=== PATIENT | female | born 1975 | race Caucasian/White ===

== ENCOUNTER 2025-03-26 08:32 | Emergency (ER) | payer SELFPAY ==
--- OUTSIDE RECORDS SUMMARY | 2025-03-26 08:41 | XMS_ITS | Encounter Summary ---
Author Organization [facility] Address [address] [place] [address] Care Team Providers Care Sports Equipment Repairer Name Role Phone Non-Staff, Physician Primary Care Provider Unava ilable Encounter Details Date Type Department Care Team (Late st Contact Info) Description 07/21/2005 Outpatient Historical [facility] [address] [facility] [address] [place] [address] Aby Bar MD [facility] [address] [place] [address] SUPERVIS NORMAL 1ST PREG (Primary Dx) Social History Tobacco Use Types Packs/Day Years Used Date Smoking Tobacco: Never Assessed Comments Unknown Sex and Gender Information Value Date Recorded Sex Assigned at Not on file Legal Sex Female 6:38 AM DEAN OF EDUCATION Gender Identity Not on file Sexual Orientation Not on file documented as of this encounter Plan of Treatment Not on file documented as of this encounter Visit Diagnoses Diagnosis Supervision of normal first - Primary documented in this encounter Care Teams Sports Equipment Repairer Relationship Specialty Start Date End Date Non-Staff, Physician NO ADDRESS ON FILE PCP - General 12/30/14 documented as of this encounter
--- OUTSIDE RECORDS SUMMARY | 2025-03-26 08:41 | XMS_ITS | Encounter Summary ---
Author Organization [facility] Address [address] [place] [address] Care Team Providers Care Accounts Payable Payroll Coordinator Name Role Phone Non-Staff, Physician Primary Care Provider Unava ilable Encounter Details Date Type Department Care Team (Late st Contact Info) Description 09/07/2007 Outpatient Historical [facility] OBGYN-[address] [place] [address] Aby Bar MD [address] [place] [address] [address] [place] [address] Social History Tobacco Use Types Packs/Day Years Used Date Smoking Tobacco: Never Assessed Comments Unknown Sex and Gender Information Value Date Recorded Sex Assigned at Not on file Legal Sex Female 6:38 AM 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
--- OUTSIDE RECORDS SUMMARY | 2025-03-26 08:41 | XMS_ITS | Encounter Summary ---
Author Organization [facility] Address [address] [place] [address] Care Team Providers Care Paint Roller Cover Machine Setter Name Role Phone Non-Staff, Physician Primary Care Provider Unava ilable Encounter Details Date Type Department Care Team (Late st Contact Info) Description 08/18/2005 Outpatient Historical [facility] [address] [facility] [address] [place] [address] Aby Bar MD 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
--- OUTSIDE RECORDS SUMMARY | 2025-03-26 08:41 | XMS_ITS | Encounter Summary ---
Author Organization [facility] Address [address] [place] [address] Care Team Providers Care Lab Technician Name Role Phone Non-Staff, Physician Primary Care Provider Unava ilable Encounter Details Date Type Department Care Team (Late st Contact Info) Description 07/05/2007 Outpatient Historical [facility] Endocrinology-[facility] [place] [address] [place] [address] Gonzales Ocampo MD NO ADDRESS ON FILE Social History Tobacco Use Types Packs/Day Years Used Date Smoking Tobacco: Never Assessed Comments Unknown Sex and Gender Information Value Date Recorded Sex Assigned at Not on file Legal Sex Female 6:38 AM HVAC/R INSTRUCTOR Gender Identity Not on file Sexual Orientation Not on file documented as of this encounter Plan of Treatment Not on file documented as of this encounter Visit Diagnoses Not on filedocumented in this encounter Care Teams Lab Technician Relationship Specialty Start Date End Date Non-Staff, Physician NO ADDRESS ON FILE PCP - General 12/30/14 documented as of this encounter
--- OUTSIDE RECORDS SUMMARY | 2025-03-26 08:41 | XMS_ITS | Encounter Summary ---
Author Organization [facility] Address [address] [place] [address] Care Team Providers Care Concert Or Lecture Hall Manager Name Role Phone Non-Staff, Physician Primary Care Provider Unava ilable Encounter Details Date Type Department Care Team (Latest Contact Info) Description 09/15/2005 Outpatient Historical [facility] Maternal and Medicine-[facility] rosette [address] [place] [address] Mookie Watters II, MD [address] [place] [address] SCREEN- MALFORM (Primary Dx) Social History Tobacco Use Types Packs/Day Years Used Date Smoking Tobacco: Never Assessed Comments Unknown Sex and Gender Information Value Date Recorded Sex Assigned at Not on file Legal Sex Female 6:38 AM RN LICENSED PRACTICAL Gender Identity Not on file Sexual Orientation Not on file documented as of this encounter Plan of Treatment Not on file documented as of this encounter Visit Diagnoses Diagnosis Encounter for routine screening for malformation using ultrasonics- Primary documented in this encounter Care Teams Concert Or Lecture Hall Manager Relationship Specialty Start Date End Date Non-Staff, Physician NO ADDRESS ON FILE PCP - General 12/30/14 documented as of this encounter
--- OUTSIDE RECORDS SUMMARY | 2025-03-26 08:41 | XMS_ITS | Encounter Summary ---
Author Organization [facility] Address [address] [place] [address] Care Team Providers Care Photogrammetrist Name Role Phone Non-Staff, Physician Primary Care Provider Unava ilable Encounter Details Date Type Department Care Team (Late st Contact Info) Description 01/09/2006 Outpatient Historical [facility] [address] [facility] [address] [place] [address] Aby Bar MD [address] [place] [address] [address] [place] [address] Supervision of Other Normal (Primary Dx) Social History Tobacco Use Types Packs/Day Years Used Date Smoking Tobacco: Never Assessed Comments Unknown Sex and Gender Information Value Date Recorded Sex Assigned at Not on file Legal Sex Female 6:38 AM MANAGER FOREIGN Gender Identity Not on file Sexual Orientation Not on file documented as of this encounter Plan of Treatment Not on file documented as of this encounter Visit Diagnoses Diagnosis Supervision of other normal - Primary documented in this encounter Care Teams Photogrammetrist Relationship Specialty Start Date End Date Non-Staff, Physician NO ADDRESS ON FILE PCP - General 12/30/14 documented as of this encounter
--- OUTSIDE RECORDS SUMMARY | 2025-03-26 08:41 | XMS_ITS | Encounter Summary ---
Author Organization [facility] Address [address] [place] [address] Care Team Providers Care Filing Clerk Name Role Phone Non-Staff, Physician Primary Care Provider Unava ilable Encounter Details Date Type Department Care Team (Late st Contact Info) Description 07/21/2005 Outpatient Historical [facility] FY06 Aby Bar MD [address] [address] Social History Tobacco Use Types Packs/Day Years Used Date Smoking Tobacco: Never Assessed Comments Unknown Sex and Gender Information Value Date Recorded Sex Assigned at Not on file Legal Sex Female 6:38 AM SIMULATION EDUCATOR Gender Identity Not on file Sexual Orientation Not on file documented as of this encounter Plan of Treatment Not on file documented as of this encounter Visit Diagnoses Not on filedocumented in this encounter Care Teams Filing Clerk Relationship Specialty Start Date End Date Non-Staff, Physician NO ADDRESS ON FILE PCP - General 12/30/14 documented as of this encounter
--- OUTSIDE RECORDS SUMMARY | 2025-03-26 08:41 | XMS_ITS | Encounter Summary ---
Author Organization [facility] Address [address] [place] [address] Care Team Providers Care Vocational Director Name Role Phone Non-Staff, Physician Primary Care Provider Unava ilable Encounter Details Date Type Department Care Team (Latest Contact Info) Description 09/15/2005 Outpatient Historical [facility] [address] [place] [phone] Christy Hathaway, INFORMATION MANAGER NO ADDRESS ON FILE SUPERVIS NORMAL 1ST PREG (Primary Dx) Social History Tobacco Use Types Packs/Day Years Used Date Smoking Tobacco: Never Assessed Comments Unknown Sex and Gender Information Value Date Recorded Sex Assigned at Not on file Legal Sex Female 6: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
--- OUTSIDE RECORDS SUMMARY | 2025-03-26 08:41 | XMS_ITS | Encounter Summary ---
Author Organization [facility] Address [address] [place] [address] Care Team Providers Care Customs And Immigration Officer Name Role Phone Non-Staff, Physician Primary Care Provider Unava ilable Encounter Details Date Type Department Care Team (Late st Contact Info) Description 08/09/2007 Outpatient Historical [facility] Maternal and Medicine-[address] [place] [address] Social History Tobacco Use Types Packs/Day Years Used Date Smoking Tobacco: Never Assessed Comments Unknown Sex and Gender Information Value Date Recorded Sex Assigned at Not on file Legal Sex Female 6:38 AM NURSE MONITORING Gender Identity Not on file Sexual Orientation Not on file documented as of this encounter Plan of Treatment Not on file documented as of this encounter Visit Diagnoses Not on filedocumented in this encounter Care Teams Customs And Immigration Officer Relationship Specialty Start Date End Date Non-Staff, Physician NO ADDRESS ON FILE PCP - General 12/30/14 documented as of this encounter
--- OUTSIDE RECORDS SUMMARY | 2025-03-26 08:41 | XMS_ITS | Encounter Summary ---
Author Organization [facility] Address [address] [place] [address] Care Team Providers Care Product Support Representative Name Role Phone Non-Staff, Physician Primary Care Provider Unava ilable Encounter Details Date Type Department Care Team (Late st Contact Info) Description 12/21/2005 Outpatient Historical [facility]YN[facility] [address] [facility] [address] [place] [address] Aby Bar MD [address] [place] [address] [address] [place] [address] Supervision of Normal First (Primary Dx) Social History Tobacco Use Types Packs/Day Years Used Date Smoking Tobacco: Never Assessed Comments Unknown Sex and Gender Information Value Date Recorded Sex Assigned at Not on file Legal Sex Female 6:38 AM TEACHING FELLOW Gender Identity Not on file Sexual Orientation Not on file documented as of this encounter Plan of Treatment Not on file documented as of this encounter Visit Diagnoses Diagnosis Supervision of normal first - Primary documented in this encounter Care Teams Product Support Representative Relationship Specialty Start Date End Date Non-Staff, Physician NO ADDRESS ON FILE PCP - General 12/30/14 documented as of this encounter
--- OUTSIDE RECORDS SUMMARY | 2025-03-26 08:41 | XMS_ITS | Encounter Summary ---
Author Organization [facility] Address [address] [place] [address] Care Team Providers Care Truck Cleaner Name Role Phone Non-Staff, Physician Primary Care Provider Unava ilable Encounter Details Date Type Department Care Team (Latest Contact Info) Description 01/01/2008 Abstract [id number] Aby Bar MD [address] [address] Social History Tobacco Use Types Packs/Day Years Used Date Smoking Tobacco: Every Day Cigarettes 1.5 5 Alcohol Use Standard Drinks/Week Comments Yes 2.5 (1 standard drink = 0.6 oz p ure alcohol) Comments Unknown Sex and Gender Information Value Date Recorded Sex Assigned at Not on file Legal Sex Female 6:38 AM CONCESSION STAND ATTENDANT Gender Identity Not on file Sexual Orientation Not on file documented as of this encounter Plan of Treatment Not on file documented as of this encounter Visit Diagnoses Not on filedocumented in this encounter Care Teams Truck Cleaner Relationship Specialty Start Date End Date Non-Staff, Physician NO ADDRESS ON FILE PCP - General 12/30/14 documented as of this encounter
--- OUTSIDE RECORDS SUMMARY | 2025-03-26 08:41 | XMS_ITS | Encounter Summary ---
Author Organization [facility] Address [address] [place] [address] Care Team Providers Care Named Account Executive Name Role Phone Non-Staff, Physician Primary Care Provider Unava ilable Encounter Details Date Type Department Care Team (Late st Contact Info) Description 06/28/2007 Outpatient Historical [facility] OBGYN-[address] [place] [address] Aby Bar MD [address] [place] [address] [address] [place] [address] Social History Tobacco Use Types Packs/Day Years Used Date Smoking Tobacco: Never Assessed Comments Unknown Sex and Gender Information Value Date Recorded Sex Assigned at Not on file Legal Sex Female 6:38 AM MANAGER PRIVACY Gender Identity Not on file Sexual Orientation Not on file documented as of this encounter Plan of Treatment Not on file documented as of this encounter Visit Diagnoses Not on filedocumented in this encounter Care Teams Named Account Executive Relationship Specialty Start Date End Date Non-Staff, Physician NO ADDRESS ON FILE PCP - General 12/30/14 documented as of this encounter
--- OUTSIDE RECORDS SUMMARY | 2025-03-26 08:41 | XMS_ITS | Encounter Summary ---
Author Organization [facility] Address [address] [place] [address] Care Team Providers Care Dehydrogenation Operator Name Role Phone Non-Staff, Physician Primary Care Provider Unava ilable Encounter Details Date Type Department Care Team (Late st Contact Info) Description 11/09/2005 Outpatient Historical [facility] [address] [facility] [address] [place] [address] Aby Bar MD [facility] [address] [place] [address] Supervision of Normal First (Primary Dx) Social History Tobacco Use Types Packs/Day Years Used Date Smoking Tobacco: Never Assessed Comments Unknown Sex and Gender Information Value Date Recorded Sex Assigned at Not on file Legal Sex Female 6:38 AM RESEARCH 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
--- OUTSIDE RECORDS SUMMARY | 2025-03-26 08:41 | XMS_ITS | Encounter Summary ---
Author Organization [facility] Address [address] [place] [address] Care Team Providers Care Promotion Manager Name Role Phone Non-Staff, Physician Primary Care Provider Unava ilable Encounter Details Date Type Department Care Team (Late st Contact Info) Description 11/23/2005 Outpatient Historical [facility] [address] [facility] [address] [place] [address] Aby Bar MD [address] [place] [address] [address] [place] [address] Supervision of Normal First (Primary Dx) Social History Tobacco Use Types Packs/Day Years Used Date Smoking Tobacco: Never Assessed Comments Unknown Sex and Gender Information Value Date Recorded Sex Assigned at Not on file Legal Sex Female 6:38 AM TAKE AWAY MAN Gender Identity Not on file Sexual Orientation Not on file documented as of this encounter Plan of Treatment Not on file documented as of this encounter Visit Diagnoses Diagnosis Supervision of normal first - Primary documented in this encounter Care Teams Promotion Manager Relationship Specialty Start Date End Date Non-Staff, Physician NO ADDRESS ON FILE PCP - General 12/30/14 documented as of this encounter
--- OUTSIDE RECORDS SUMMARY | 2025-03-26 08:41 | XMS_ITS | Encounter Summary ---
Author Organization [facility] Address [address] [place] [address] Care Team Providers Care Sweat Band Sewer Name Role Phone Non-Staff, Physician Primary Care Provider Unava ilable Encounter Details Date Type Department Care Team (Late st Contact Info) Description 10/20/2005 Outpatient Historical [facility] [address] [facility] [address] [place] [address] Aby Bar MD [address] [place] [address] [address] [place] [address] Supervision of Normal First (Primary Dx) Social History Tobacco Use Types Packs/Day Years Used Date Smoking Tobacco: Never Assessed Comments Unknown Sex and Gender Information Value Date Recorded Sex Assigned at Not on file Legal Sex Female 6:38 AM MANAGER OFFICE Gender Identity Not on file Sexual Orientation Not on file documented as of this encounter Plan of Treatment Not on file documented as of this encounter Visit Diagnoses Diagnosis Supervision of normal first - Primary documented in this encounter Care Teams Sweat Band Sewer Relationship Specialty Start Date End Date Non-Staff, Physician NO ADDRESS ON FILE PCP - General 12/30/14 documented as of this encounter
--- OUTSIDE RECORDS SUMMARY | 2025-03-26 08:41 | XMS_ITS | Encounter Summary ---
Author Organization [facility] Address [address] [place] [address] Care Team Providers Care Seater Grinder Name Role Phone Non-Staff, Physician Primary Care Provider Unava ilable Encounter Details Date Type Department Care Team (Late st Contact Info) Description 12/07/2005 Outpatient Historical [facility] [address] [facility] [address] [place] [address] Aby Bar MD [address] [place] [address] [address] [place] [address] Supervision of Normal First (Primary Dx) Social History Tobacco Use Types Packs/Day Years Used Date Smoking Tobacco: Never Assessed Comments Unknown Sex and Gender Information Value Date Recorded Sex Assigned at Not on file Legal Sex Female 6:38 AM DIPLOMATIC INTERPRETER/TRANSLATOR Gender Identity Not on file Sexual Orientation Not on file documented as of this encounter Plan of Treatment Not on file documented as of this encounter Visit Diagnoses Diagnosis Supervision of normal first - Primary documented in this encounter Care Teams Seater Grinder Relationship Specialty Start Date End Date Non-Staff, Physician NO ADDRESS ON FILE PCP - General 12/30/14 documented as of this encounter
--- OUTSIDE RECORDS SUMMARY | 2025-03-26 08:41 | XMS_ITS | Encounter Summary ---
Author Organization [facility] Address [address] [facility] Attn: [place] [address] Care Team Providers Care Grain Sacker Name Role Phone Non-Staff, Physician Primary Care Provider Unava ilable Encounter Details Date Type Department Care Team (Late st Contact Info) Description 07/21/2005 Outpatient Historical Aby Bar MD [address] [place] [phone] Social History Tobacco Use Types Packs/Day Years Used Date Smoking Tobacco: Never Assessed Comments Unknown Sex and Gender Information Value Date Recorded Sex Assigned at Not on file Legal Sex Female 6:38 AM HAND COUNTER Gender Identity Not on file Sexual Orientation Not on file documented as of this encounter Plan of Treatment Not on file documented as of this encounter Visit Diagnoses Not on filedocumented in this encounter Care Teams Grain Sacker Relationship Specialty Start Date End Date Non-Staff, Physician NO ADDRESS ON FILE PCP - General 12/30/14 documented as of this encounter
--- OUTSIDE RECORDS SUMMARY | 2025-03-26 08:42 | XMS_ITS | Encounter Summary ---
Author Organization [facility] Address [address] [facility] Attn: [place] [address] Care Team Providers Care Vessel Captain Name Role Phone Non-Staff, Physician Primary Care Provider Unava ilable Encounter Details Date Type Department Care Team (Late st Contact Info) Description 04/25/2007 Outpatient Historical Aby Bar MD [address] [place] [phone] Social History Tobacco Use Types Packs/Day Years Used Date Smoking Tobacco: Never Assessed Comments Unknown Sex and Gender Information Value Date Recorded Sex Assigned at Not on file Legal Sex Female 6:38 AM ROLLER Gender Identity Not on file Sexual Orientation Not on file documented as of this encounter Plan of Treatment Not on file documented as of this encounter Visit Diagnoses Not on filedocumented in this encounter Care Teams Vessel Captain Relationship Specialty Start Date End Date Non-Staff, Physician NO ADDRESS ON FILE PCP - General 12/30/14 documented as of this encounter
--- OUTSIDE RECORDS SUMMARY | 2025-03-26 08:42 | XMS_ITS | Encounter Summary ---
Author Organization [facility] Address [address] [place] [address] Care Team Providers Care Ciaio Lumite Injector Name Role Phone Non-Staff, Physician Primary Care Provider Unava ilable Encounter Details Date Type Department Care Team (Late st Contact Info) Description 02/13/2006 Outpatient Historical [facility] Aby Bar MD [address] [address] Premature Rupture of Membranes in , Antepartum (Primary Dx) Social History Tobacco Use Types Packs/Day Years Used Date Smoking Tobacco: Never Assessed Comments Unknown Sex and Gender Information Value Date Recorded Sex Assigned at Not on file Legal Sex Female 6:38 AM EDITING CLERK Gender Identity Not on file Sexual Orientation Not on file documented as of this encounter Plan of Treatment Not on file documented as of this encounter Visit Diagnoses Diagnosis Premature rupture of membranes in , antepartum- Primary documented in this encounter Care Teams Ciaio Lumite Injector Relationship Specialty Start Date End Date Non-Staff, Physician NO ADDRESS ON FILE PCP - General 12/30/14 documented as of this encounter
--- OUTSIDE RECORDS SUMMARY | 2025-03-26 08:42 | XMS_ITS | Encounter Summary ---
Author Organization [facility] Address [address] [place] [address] Care Team Providers Care Breastfeeding Program Coordinator Name Role Phone Non-Staff, Physician Primary Care Provider Unava ilable Encounter Details Date Type Department Care Team (Late st Contact Info) Description 01/25/2006 Outpatient Historical [facility] [address] 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
--- OUTSIDE RECORDS SUMMARY | 2025-03-26 08:42 | XMS_ITS | Encounter Summary ---
Author Organization [facility] Address [address] [place] [address] Care Team Providers Care Web Merchant Name Role Phone Non-Staff, Physician Primary Care Provider Unava ilable Encounter Details Date Type Department Care Team (Latest Contact Info) Description 02/15/2006 Outpatient Historical [facility] [address] [place] [address] Christy Hathaway, CREATIVE LEAD NO ADDRESS ON FILE Supervision of Normal First (Primary Dx) Social History Tobacco Use Types Packs/Day Years Used Date Smoking Tobacco: Never Assessed Comments Unknown Sex and Gender Information Value Date Recorded Sex Assigned at Not on file Legal Sex Female 6:38 AM 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
--- OUTSIDE RECORDS SUMMARY | 2025-03-26 08:42 | XMS_ITS | Encounter Summary ---
Author Organization [facility] Address [address] [place] [address] Care Team Providers Care Airport Attendant Name Role Phone Non-Staff, Physician Primary Care Provider Unava ilable Encounter Details Date Type Department Care Team (Late st Contact Info) Description 08/23/2007 Outpatient Historical [facility] OBGYN-[place] [address] [place] [address] Aby Bar MD [facility] [address] [place] [address] Social History Tobacco Use Types Packs/Day Years Used Date Smoking Tobacco: Never Assessed Comments Unknown Sex and Gender Information Value Date Recorded Sex Assigned at Not on file Legal Sex Female 6:38 AM DEPUTY INSURANCE COMMISSIONER Gender Identity Not on file Sexual Orientation Not on file documented as of this encounter Plan of Treatment Not on file documented as of this encounter Procedures Procedure Name Priority Date/Time Associated Diagnosis Comments GLUCOSE TOLERANCE 1 HR GESTATIONAL Routine 09/07/2007 11:12 AM DEPUTY INSURANCE COMMISSIONER CBC WITH DIFFERENTIAL Routine 09/07/2007 11:12 AM DEPUTY INSURANCE COMMISSIONER T3 FREE Routine 09/07/2007 11:12 AM DEPUTY INSURANCE COMMISSIONER TSH Routine 09/07/2007 11:12 AM DEPUTY INSURANCE COMMISSIONER T4 FREE Routine 09/07/2007 11:12 AM DEPUTY INSURANCE COMMISSIONER documented in this encounter Results * (ABNORMAL) TSH (09/07/2007 11:12 AM DEPUTY INSURANCE COMMISSIONER) TSH 0.02(L) 0.27 - 4.20 uIU/ML [facility] 09/07/2007 11:1 2 AM DEPUTY INSURANCE COMMISSIONER 09/07/2007 11:17 AM DEPUTY INSURANCE COMMISSIONER Aby Bar MD CHEMISTRY ORDERABLES F inal Result [facility] CLIA# [id number] [address] [place] [address] * GLUCOSE TOLERANCE 1 HR GESTATIONAL (09/07/2007 11:12 AM DEPUTY INSURANCE COMMISSIONER) Pathologist [facility] GLUCOSE, 1HR 90 MG/DL [facility] 09/07/2007 11:1 2 AM DEPUTY INSURANCE COMMISSIONER 09/07/2007 11:17 AM DEPUTY INSURANCE COMMISSIONER Aby Bar MD CHEMISTRY ORDERABLES F inal Result Performing Organization Address City/[facility] Co de Phone Number [facility] CLIA# [id number] [address] [place] [address] * T4 FREE (09/07/2007 11:12 AM DEPUTY INSURANCE COMMISSIONER) Pathologist [facility] T4 FREE 1.17 0.81 - 1.70 NG/DL [facility] 09/07/2007 11:1 2 AM DEPUTY INSURANCE COMMISSIONER 09/07/2007 11:17 AM DEPUTY INSURANCE COMMISSIONER Aby Bar MD CHEMISTRY ORDERABLES F inal Result [facility] CLIA# [id number] [address] [place] [address] * T3 FREE (09/07/2007 11:12 AM DEPUTY INSURANCE COMMISSIONER) T3 FREE 3.67 2.57 - 4.43 PG/ML [facility] 09/07/2007 11:1 2 AM DEPUTY INSURANCE COMMISSIONER 09/07/2007 11:17 AM DEPUTY INSURANCE COMMISSIONER Aby Bar MD CHEMISTRY ORDERABLES F inal Result [facility] CLIA# [id number] [address] [place] [address] * (ABNORMAL) CBC WITH DIFFERENTIAL (09/07/2007 11:12 AM DEPUTY INSURANCE COMMISSIONER) WBC 9.2 4.5 - 11.0 K/UL [facility] [place] RBC 3.99(L) 4.2 - 5.4 M/UL [facility] [place] HEMOGLOBIN 11.9(L) 12.0 - 16.0 G/DL [facility] [place] HEMATOCRIT 35.1(L) 36 - 46 % [facility] - [place] MCV 88.0 82 - 100 FL [facility] [place] MCH 29.9 27 - 34 PG [facility] CLI [facility] SERVICES - [place] MCHC 34.0 31 - 37 G/DL [facility] [place] RDW 12.7 11 - 14.5 % [facility] [place] PLATELETS 324 140 - 440 K/UL [facility] [place] MPV 7.1(L) 7.4 - 10.4 FL [facility] [place] NEUTROPHILS 66.6 42.2 - 75.2 % [facility] [place] LYMPHOCYTES 24.4 24 - 44 % [facility] [place] MONOCYTES 6.7 2 - 10 % [facility] - [place] EOSINOPHILS 1.9 0 - 7 % [facility] [place] BASOPHILS 0.4 0 - 1 % [facility] SERVICES - [place] NEUTROPHIL ABSOLUTE 6.2 1.4 - 6.5 K/uL [facility] [place] LYMPHOCYTE ABSOLUTE 2.2 1.2 - 4.0 K/UL [facility] [place] MONOCYTE ABSOLUTE 0.6 0.1 - 0.6 K/UL [facility] [place] EOSINOPHIL ABSOLUTE 0.2 0 - 0.7 K/UL [facility] [place] BASOPHILS ABSOLUTE 0.0 0 - 0.2 K/UL [facility] [place] 09/07/2007 11:1 2 AM DEPUTY INSURANCE COMMISSIONER 09/07/2007 11:17 AM DEPUTY INSURANCE COMMISSIONER us Aby Bar MD HEMATOLOGY ORDERABLES Final Result [facility] [place] CLIA# [id number] [address] [place] [phone] documented in this encounter Visit Diagnoses Not on filedocumented in this encounter Care Teams Airport Attendant Relationship Specialty Start Date End Date Non-Staff, Physician NO ADDRESS ON FILE PCP - General 12/30/14 documented as of this encounter
--- OUTSIDE RECORDS SUMMARY | 2025-03-26 08:42 | XMS_ITS | Clinical Summary ---
Author Organization [facility] Address [address] [facility] [place] [address] Care Team Providers Care Equipment Scheduler Name Role Phone Non-Staff, Physician Primary Care Provider Unava ilable Allergies No known active allergies Medications cefUROXime axetil (CEFTIN) 250 mg Oral Tab Take 1 Tab by mouth every 12 hours. 28 Tab 0 08/08/2008 Active Immunizations Immunization Administration Dates Next Due Influenza Seasonal Unspecified Formulation IM Family History Medical History Relation Name Comments Cancer Father skin cancer Diabetes Maternal Grandfather Other Paternal Grandfather glaucom a Relation Name Status Comments Father Alive Maternal Grandfather Maternal Grandmother Mother Alive Paternal Grandfather Paternal Grandmother Social History Tobacco Use Types Packs/Day Years Used Date Smoking Tobacco: Former Cigarettes 0.3 3 Comments:social once a month Alcohol Use Standard Drinks/Week Comments Yes 2.5 (1 standard drink = 0.6 oz p ure alcohol) Comments No Sex and Gender Information Value Date Recorded Sex Assigned at Not on file Legal Sex Female 6:38 AM BUILDING SUPPLIES SALESPERSON RETAIL Gender Identity Not on file Sexual Orientation Not on file Last Filed Vital Signs Vital Sign Reading Time Taken Comments Blood Pressure 112/78 08/08/2008 1:09 PM BUILDING SUPPLIES SALESPERSON RETAIL Pulse 78 08/08/2008 1:09 PM BUILDING SUPPLIES SALESPERSON RETAIL Temperature - - Respiratory Rate 16 01/09/2008 11:24 AM CDT Oxygen Saturation - - Inhaled Oxygen Concentration - - Weight 78.5 kg (173 lb) 08/08/2008 1:09 PM BUILDING SUPPLIES SALESPERSON RETAIL Height 167.6 cm (5' 6 ) 01/09/2008 11:24 AM CDT Body Mass Index 27.92 01/09/2008 11:24 AM CDT Plan of Treatment Health Maintenance Due Date Last Done Comments DTAP/TDAP/TD VACCINES (1 - Tdap) 1993 HEPATITIS B VACCINES (1 of 3 - 19+ 3-dose series) 1993 HPV/Cotest (21-29) 1995 HPV/Cotest (30-65) 2004 CERVICAL CANCER SCREENING 04/25/2010 PAP SMEAR 04/25/2010 04/25/2007, 01/2006, 07/21/2005 BREAST CANCER SCREENING 2014 COLORECTAL SCREENING 2019 Colorectal Cancer Screening 2019 FIT-DNA Q 3 years 2019 FIT/FOBT Q 1 year 2019 Flex Sig/CT Colonography Q 5 years 2019 ZOSTER VACCINE (1 of 2) 2024 INFLUENZA VACCINE (#1) 2025 05/24/2007 Insurance PREFERRED HEALTH PROFESSIONAL Care Teams Equipment Scheduler Relationship Specialty Start Date End Date Non-Staff, Physician NO ADDRESS ON FILE PCP - General 12/30/14
--- OUTSIDE RECORDS SUMMARY | 2025-03-26 08:42 | XMS_ITS | Encounter Summary ---
Author Organization [facility] Address [address] [place] [address] Care Team Providers Care Authorization Representative Name Role Phone Non-Staff, Physician Primary Care Provider Unava ilable Encounter Details Date Type Department Care Team (Late st Contact Info) Description 02/01/2006 Outpatient Historical [facility] [address] [facility] [address] [place] [address] Aby Bar MD [address] [place] [address] [address] [place] [address] Supervision of Normal First (Primary Dx) Social History Tobacco Use Types Packs/Day Years Used Date Smoking Tobacco: Never Assessed Comments Unknown Sex and Gender Information Value Date Recorded Sex Assigned at Not on file Legal Sex Female 6:38 AM SUPERVISOR 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
--- OUTSIDE RECORDS SUMMARY | 2025-03-26 08:42 | XMS_ITS | Encounter Summary ---
Author Organization [facility] Address [address] [place] [address] Care Team Providers Care Business Continuity Analyst Name Role Phone Non-Staff, Physician Primary Care Provider Unava ilable Encounter Details Date Type Department Care Team (Latest Contact Info) Description 03/30/2006 Outpatient [facility] [address] [place] [address] Christy Hathaway, FORENSIC LOCKSMITH NO ADDRESS ON FILE Routine Follow-Up (Primary Dx) Social History Tobacco Use Types Packs/Day Years Used Date Smoking Tobacco: Never Assessed Comments Unknown Sex and Gender Information Value Date Recorded Sex Assigned at Not on file Legal Sex Female 6:38 AM IMAGE ARCHIVIST Gender Identity Not on file Sexual Orientation Not on file documented as of this encounter Plan of Treatment Not on file documented as of this encounter Visit Diagnoses Diagnosis Routine follow-up- Primary documented in this encounter Care Teams Business Continuity Analyst Relationship Specialty Start Date End Date Non-Staff, Physician NO ADDRESS ON FILE PCP - General 12/30/14 documented as of this encounter
--- OUTSIDE RECORDS SUMMARY | 2025-03-26 08:42 | XMS_ITS | Encounter Summary ---
Author Organization [facility] Address [address] [place] [address] Care Team Providers Care Concessionist Name Role Phone Non-Staff, Physician Primary Care Provider Unava ilable Encounter Details Date Type Department Care Team (Late st Contact Info) Description 07/26/2007 Outpatient Historical [facility] [address] [facility] [address] [place] [address] Aby Bar MD [address] [place] [address] [address] [place] [address] Social History Tobacco Use Types Packs/Day Years Used Date Smoking Tobacco: Never Assessed Comments Unknown Sex and Gender Information Value Date Recorded Sex Assigned at Not on file Legal Sex Female 6:38 AM SENIOR PARTNER Gender Identity Not on file Sexual Orientation Not on file documented as of this encounter Plan of Treatment Not on file documented as of this encounter Visit Diagnoses Not on filedocumented in this encounter Care Teams Concessionist Relationship Specialty Start Date End Date Non-Staff, Physician NO ADDRESS ON FILE PCP - General 12/30/14 documented as of this encounter
--- OUTSIDE RECORDS SUMMARY | 2025-03-26 08:42 | XMS_ITS | Encounter Summary ---
Author Organization [facility] Address [address] [facility] Attn: [place] [address] Care Team Providers Care Postage Machine Operator Name Role Phone Non-Staff, Physician Primary Care Provider Unava ilable Encounter Details Date Type Department Care Team (Late st Contact Info) Description 01/09/2008 Outpatient Historical Kimberley Ferrer, AMMUNITION COMPONENTS INSPECTOR [address] [place] [address] Routine Follow-Up Social History Tobacco Use Types Packs/Day Years Used Date Smoking Tobacco: Every Day Cigarettes 1.5 5 Alcohol Use Standard Drinks/Week Comments Yes 2.5 (1 standard drink = 0.6 oz p ure alcohol) Comments No Sex and Gender Information Value Date Recorded Sex Assigned at Not on file Legal Sex Female 6:38 AM GRANITE POLISHER Gender Identity Not on file Sexual Orientation Not on file documented as of this encounter Plan of Treatment Not on file documented as of this encounter Procedures Procedure Name Priority Date/Time Associated Diagnosis Comments PATHOLOGY Routine 01/09/2008 6:35 AM CDT documented in this encounter Results * PATHOLOGY (01/09/2008 6:35 AM CDT) PATHOLOGY/ANJELICA SINGLETARY REPORT [facility] Anatomic Pathology Dept [facility] [facility] [address] Patient: ARABELLA COUGHLIN Accn No: [id number] Collected: 01/09/2008 6:35:00 AM CYTOLOGY CUTTER V GROOVE FINAL REPORT - - MACHINE CLOTH MEASURER PAP History Specimen Source: None Provided LMP: None Provided Last Pap Date: None Provided Post- Specimen Adequacy Satisfactory for interpretation. The smear shows sufficient numbers of endocervical or metaplastic cells. Diagnosis NEGATIVE FOR INTRAEPITHELIAL LESION OR MALIGNANCY. (Previously noted as Within Normal Limits) Cartographic Drafter JEREL 01/10/08 Completed by: HONG CARVAJAL(ASCP) (Electronically signed by) 01/10/08 Comment Routine follow-up is suggested. Important Info About Pap Smears HPV Testing off the Thin Prep vial can be done as a means of further evaluating a Thin Prep Report. For information about ordering the HPV test, phone Cytology at . Treatment or follow-up recommendations (if any) that are considered within this report are based upon general recommendations as contained in 2001 Consensus Guidelines For Cervical Cytological Abnormalities GLORIA: November 14, 2001, and are provided as a general guideline rather than as a specific recommendation. Final decisions about the most appropriate treatment and follow-up should be made on an individualized basis by the treating physician in consultation with his/her patient. INTERFACE SYSTEM 01/09/2008 6:35 AM CDT us Kimberley Ferrer NP PATHOLOGY/CYTOLOGY ORDERABL ES Final Result INTERFACE SYSTEM Refer to clinic/hospital department documented in this encounter Visit Diagnoses Diagnosis Routine follow-up documented in this encounter Care Teams Postage Machine Operator Relationship Specialty Start Date End Date Non-Staff, Physician NO ADDRESS ON FILE PCP - General 12/30/14 documented as of this encounter
--- OUTSIDE RECORDS SUMMARY | 2025-03-26 08:42 | XMS_ITS | Encounter Summary ---
Author Organization [facility] Address [address] [place] [address] Care Team Providers Care Receiving Lead Name Role Phone Non-Staff, Physician Primary Care Provider Unava ilable Encounter Details Date Type Department Care Team (Late st Contact Info) Description 04/25/2007 Outpatient Historical [facility] FY06 Aby Bar MD [address] [address] Social History Tobacco Use Types Packs/Day Years Used Date Smoking Tobacco: Never Assessed Comments Unknown Sex and Gender Information Value Date Recorded Sex Assigned at Not on file Legal Sex Female 6:38 AM PHYSICAL THERAPIST ASSISTANT Gender Identity Not on file Sexual Orientation Not on file documented as of this encounter Plan of Treatment Not on file documented as of this encounter Visit Diagnoses Not on filedocumented in this encounter Care Teams Receiving Lead Relationship Specialty Start Date End Date Non-Staff, Physician NO ADDRESS ON FILE PCP - General 12/30/14 documented as of this encounter
--- OUTSIDE RECORDS SUMMARY | 2025-03-26 08:42 | XMS_ITS | Encounter Summary ---
Author Organization [facility] Address [address] [place] [address] Care Team Providers Care Orthopedic Assistant Name Role Phone Non-Staff, Physician Primary Care Provider Unava ilable Encounter Details Date Type Department Care Team (Late st Contact Info) Description 11/29/2007 Inpatient Historical HIS IN BED [facility], Aby Velez MD [address] [facility] [address] [place] [address] Social History Tobacco Use Types Packs/Day Years Used Date Smoking Tobacco: Never Assessed Comments Unknown Sex and Gender Information Value Date Recorded Sex Assigned at Not on file Legal Sex Female 6:38 AM MOTEL MAID Gender Identity Not on file Sexual Orientation Not on file documented as of this encounter Plan of Treatment Not on file documented as of this encounter Procedures Procedure Name Priority Date/Time Associated Diagnosis Comments CBC WITHOUT DIFFERENTIAL Routine 11/30/2007 7:49 AM CDT BLOOD GAS CORD ARTERIAL Stat 11/29/2007 1:22 PM CDT ABORH TYPING Stat 11/29/2007 6:02 AM CDT CBC WITHOUT DIFFERENTIAL Stat 11/29/2007 6:02 AM CDT BLOOD BANK ANTIBODY SCREEN Stat 11/29/2007 6:02 AM CDT documented in this encounter Results * (ABNORMAL) CBC WITHOUT DIFFERENTIAL (11/30/2007 7:49 AM CDT) LYMPHOCYTE ABSOLUTE 2.9 1.2 - 4.0 K/ul [facility] MCV 87.4 84.0 - 103.0 Fl [facility] MPV 10.1 8.9 - 12.8 Fl [facility] BASOPHILS ABSOLUTE 0.0 0.0 - 0.2 K/ul [facility] BASOPHILS 0.2 0.0 - 1.0 % [facility] HEMOGLOBIN 11.0(L) 12.0 - 16.0 g/dL [facility] RDW 13.2 11.0 - 14.5 % [facility] MONOCYTE ABSOLUTE 0.7(H) 0.1 - 0.6 K/ul [facility] MONOCYTES 6.4 2.0 - 10.0 % [facility] WBC 10.2 4.5 - 11.0 K/ul [facility] MCH 29.4 27.0 - 34.0 pg [facility] NEUTROPHIL ABSOLUTE 6.4 2.0 - 8.0 K/ul [facility] NEUTROPHILS 62.4 42.2 - 75.2 % [facility] HEMATOCRIT 32.7(L) 36.0 - 46.0 % [facility] EOSINOPHILS 3.0 0.0 - 7.0 % [facility] PLATELETS 189 140 - 440 K/ul [facility] EOSINOPHIL ABSOLUTE 0.3 0.0 - 0.7 K/ul [facility] RBC 3.74(L) 4.20 - 5.40 Mil/ul [facility] LYMPHOCYTES 28.0 24.0 - 44.0 % [facility] MCHC 33.6 30.0 - 35.0 g/dL [facility] Blood specimen (specimen) 11/30/2007 7:49 AM CDT 11/30/2007 7:55 AM CDT us Aby Bar MD HEMATOLOGY ORDERABLES Final Result [facility] CLIA# [id number] [address] [place] [address] * (ABNORMAL) BLOOD GAS CORD ARTERIAL (11/29/2007 1:22 PM CDT) O2 SAT EST CORD ARTERIAL 18 % [facility] HCO3 CORD ARTERIAL 26.2 17.0 - 27.0 mmol/l [facility] TCO2 CORD 28 mmol/l [facility] PCO2 CORD ARTERIAL 62(H) 32 - 36 mmHg [facility] BASE EXCESS CORD ARTERIAL -1 -2 - 3 mmol/l [facility] SPECIMEN DESCRIPTION Arterial [facility] Comment: Test Performed By [id number] Sample not collected by [facility] PO2 CORD ARTERIAL 17 mmHg [facility] PH CORD ARTERIAL 7.23 7.18 - 7.38 Unit [facility] Cord blood specimen (specimen) 11/29/2007 1:22 PM CDT 11/29/2007 1:22 PM CDT us Aby Bar MD ABG ORDERABLES Final Result [facility] [address] [place] [address] * (ABNORMAL) CBC WITHOUT DIFFERENTIAL (11/29/2007 6:02 AM CDT) HEMATOCRIT 34.8(L) 36.0 - 46.0 % [facility] PLATELETS 232 140 - 440 K/ul [facility] EOSINOPHIL ABSOLUTE 0.2 0.0 - 0.7 K/ul [facility] EOSINOPHILS 1.9 0.0 - 7.0 % [facility] RBC 4.00(L) 4.20 - 5.40 Mil/ul [facility] MCHC 33.6 30.0 - 35.0 g/dL [facility] LYMPHOCYTE ABSOLUTE 2.9 1.2 - 4.0 K/ul [facility] LYMPHOCYTES 26.0 24.0 - 44.0 % [facility] MCV 87.0 84.0 - 103.0 Fl [facility] BASOPHILS 0.2 0.0 - 1.0 % [facility] MPV 10.9 8.9 - 12.8 Fl [facility] BASOPHILS ABSOLUTE 0.0 0.0 - 0.2 K/ul [facility] HEMOGLOBIN 11.7(L) 12.0 - 16.0 g/dL [facility] MONOCYTES 6.8 2.0 - 10.0 % [facility] RDW 13.2 11.0 - 14.5 % [facility] MONOCYTE ABSOLUTE 0.8(H) 0.1 - 0.6 K/ul [facility] WBC 11.3(H) 4.5 - 11.0 K/ul [facility] NEUTROPHILS 65.1 42.2 - 75.2 % [facility] MCH 29.3 27.0 - 34.0 pg [facility] NEUTROPHIL ABSOLUTE 7.3 2.0 - 8.0 K/ul [facility] Blood specimen (specimen) 11/29/2007 6:02 AM CDT 11/29/2007 6:02 AM CDT Aby Bar MD HEMATOLOGY ORDERABLES Final Result [facility] [address] [place] [address] * ANTIBODY SCREEN (11/29/2007 6:02 AM CDT) ANTIBODY SCREEN Negative [facility] Blood specimen (specimen) 11/29/2007 6:02 AM CDT 11/29/2007 6:02 AM CDT us Aby Bar MD BLOOD BANK ORDERABLES Final Result [facility] [address] [place] [address] * ABORH TYPING (11/29/2007 6:02 AM CDT) ABO/RH TYPE O Positive [facility] Blood specimen (specimen) 11/29/2007 6:02 AM CDT 11/29/2007 6:02 AM CDT us Aby Bar MD BLOOD BANK ORDERABLES Final Result Performing Organization Address City/State/RUST Co de Phone Number [facility] [address] [place] [address] documented in this encounter Visit Diagnoses Not on filedocumented in this encounter Care Teams Orthopedic Assistant Relationship Specialty Start Date End Date Non-Staff, Physician NO ADDRESS ON FILE PCP - General 12/30/14 documented as of this encounter
--- OUTSIDE RECORDS SUMMARY | 2025-03-26 08:42 | XMS_ITS | Encounter Summary ---
Author Organization [facility] Address [address] [place] [address] Care Team Providers Care Ug Designer Name Role Phone Non-Staff, Physician Primary Care Provider Unava ilable Encounter Details Date Type Department Care Team (Late st Contact Info) Description 01/18/2006 Outpatient Historical [facility] [address] [facility] [address] [place] [address] Aby Bar MD [facility] [address] [place] [address] Supervision of Normal First (Primary Dx) Social History Tobacco Use Types Packs/Day Years Used Date Smoking Tobacco: Never Assessed Comments Unknown Sex and Gender Information Value Date Recorded Sex Assigned at Not on file Legal Sex Female 6:38 AM TRAVEL REGISTERED NURSE ONCOLOGY Gender Identity Not on file Sexual Orientation Not on file documented as of this encounter Plan of Treatment Not on file documented as of this encounter Visit Diagnoses Diagnosis Supervision of normal first - Primary documented in this encounter Care Teams Ug Designer Relationship Specialty Start Date End Date Non-Staff, Physician NO ADDRESS ON FILE PCP - General 12/30/14 documented as of this encounter
--- OUTSIDE RECORDS SUMMARY | 2025-03-26 08:42 | XMS_ITS | Encounter Summary ---
Author Organization [facility] Address [address] [place] [address] Care Team Providers Care Shore Man Name Role Phone Non-Staff, Physician Primary Care Provider Unava ilable Encounter Details Date Type Department Care Team (Latest Contact Info) Description 06/21/2005 Outpatient Historical [facility] [address] [place] [phone] Essence Lao MD [address] [place] [address] ACUTE URI NOS (Primary Dx) Social History Tobacco Use Types Packs/Day Years Used Date Smoking Tobacco: Never Assessed Comments Unknown Sex and Gender Information Value Date Recorded Sex Assigned at Not on file Legal Sex Female 6:38 AM FLOOR PLAN ADJUSTER Gender Identity Not on file Sexual Orientation Not on file documented as of this encounter Plan of Treatment Not on file documented as of this encounter Visit Diagnoses Diagnosis Acute upper respiratory infections of unspecified site- Primary documented in this encounter Care Teams Shore Man Relationship Specialty Start Date End Date Non-Staff, Physician NO ADDRESS ON FILE PCP - General 12/30/14 documented as of this encounter
--- OUTSIDE RECORDS SUMMARY | 2025-03-26 08:42 | XMS_ITS | Encounter Summary ---
Author Organization [facility] Address [address] [place] [address] Care Team Providers Care Biofuels Research Scientist Name Role Phone Non-Staff, Physician Primary Care Provider Unava ilable Encounter Details Date Type Department Care Team (Late st Contact Info) Description 07/11/2005 Outpatient Historical [facility]YN[facility] [address] [facility] [address] [place] [address] Aby Bar MD [facility] [address] [place] [address] SUPERVIS NORMAL 1ST PREG (Primary Dx) Social History Tobacco Use Types Packs/Day Years Used Date Smoking Tobacco: Never Assessed Comments Unknown Sex and Gender Information Value Date Recorded Sex Assigned at Not on file Legal Sex Female 6:38 AM ANIMAL CARE SPECIALIST Gender Identity Not on file Sexual Orientation Not on file documented as of this encounter Plan of Treatment Not on file documented as of this encounter Visit Diagnoses Diagnosis Supervision of normal first - Primary documented in this encounter Care Teams Biofuels Research Scientist Relationship Specialty Start Date End Date Non-Staff, Physician NO ADDRESS ON FILE PCP - General 12/30/14 documented as of this encounter
--- OUTSIDE RECORDS SUMMARY | 2025-03-26 08:42 | XMS_ITS | Encounter Summary ---
Author Organization [facility] Address [address] [place] [address] Care Team Providers Care Hospitality Intern Name Role Phone Non-Staff, Physician Primary Care Provider Unava ilable Encounter Details Date Type Department Care Team (Late st Contact Info) Description 02/16/2006 Inpatient Historical HIS IN BED [facility], Aby Velez MD [address] 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 Gender Identity Not on file Sexual Orientation Not on file documented as of this encounter Plan of Treatment Not on file documented as of this encounter Procedures Procedure Name Priority Date/Time Associated Diagnosis Comments CBC WITHOUT DIFFERENTIAL Routine 02/17/2006 1:35 PM CDT BLOOD GAS CORD ARTERIAL Routine 02/17/2006 2:00 AM CDT CBC WITHOUT DIFFERENTIAL Routine 02/16/2006 12:48 AM CDT documented in this encounter Results * (ABNORMAL) CBC WITHOUT DIFFERENTIAL (02/17/2006 1:35 PM CDT) WBC 23.2(H) 4.5 - 11.0 K/ul [facility] RBC 3.71(L) 4.20 - 5.40 Mil/ul [facility] HEMOGLOBIN 11.2(L) 12.0 - 16.0 g/dL [facility] HEMATOCRIT 33.1(L) 36.0 - 46.0 % [facility] MCV 89.2 84.0 - 103.0 Fl [facility] MCH 30.2 27.0 - 34.0 pg [facility] MCHC 33.8 30.0 - 35.0 g/dL [facility] RDW 12.9 11.0 - 14.5 % [facility] PLATELETS 190 140 - 440 K/ul [facility] MPV 10.6 8.9 - 12.8 Fl [facility] NEUTROPHILS 88.2(H) 42.2 - 75.2 % [facility] LYMPHOCYTES 5.8(L) 24.0 - 44.0 % [facility] MONOCYTES 5.8 2.0 - 10.0 % [facility] EOSINOPHILS 0.2 0.0 - 7.0 % [facility] NEUTROPHIL ABSOLUTE 20.4(H) 2.0 - 8.0 K/uL [facility] LYMPHOCYTE ABSOLUTE 1.4 1.2 - 4.0 K/ul [facility] MONOCYTE ABSOLUTE 1.3(H) 0.1 - 0.6 K/ul [facility] EOSINOPHIL ABSOLUTE 0.1 0.0 - 0.7 K/ul [facility] BASOPHILS ABSOLUTE 0.0 0.0 - 0.2 K/ul [facility] 02/17/2006 1:35 PM CDT us Aby Bar MD HEMATOLOGY ORDERABLES Final Result [facility] Refer to clinic/hospital department * (ABNORMAL) BLOOD GAS CORD ARTERIAL (02/17/2006 2:00 AM CDT) SPECIMEN DESCRIPTION Arterial [facility] Comment:Sample not collected by [facility] PH CORD ARTERIAL 7.28 7.18 - 7.38 Unit [facility] PCO2 CORD ARTERIAL 53(H) 32 - 36 mmHg [facility] PO2 CORD ARTERIAL 13 mmHg [facility] HCO3 CORD ARTERIAL 25.0 17.0 - 27.0 mmol/l [facility] BASE EXCESS CORD ARTERIAL -2 -2 - 3 mmol/l [facility] O2 SAT EST CORD ARTERIAL 12 % [facility] TCO2 CORD 27 mmol/l [facility] 02/17/2006 2:00 AM CDT Aby Bar MD ABG ORDERABLES Final Result [facility] Refer to clinic/hospital department * (ABNORMAL) CBC WITHOUT DIFFERENTIAL (02/16/2006 12:48 AM CDT) WBC 12.4(H) 4.5 - 11.0 K/ul [facility] RBC 4.03(L) 4.20 - 5.40 Mil/ul [facility] HEMOGLOBIN 12.4 12.0 - 16.0 g/dL [facility] HEMATOCRIT 35.7(L) 36.0 - 46.0 % [facility] MCV 88.6 84.0 - 103.0 Fl [facility] MCH 30.8 27.0 - 34.0 pg [facility] MCHC 34.7 30.0 - 35.0 g/dL [facility] RDW 13.0 11.0 - 14.5 % [facility] PLATELETS 238 140 - 440 K/ul [facility] MPV 11.1 8.9 - 12.8 Fl [facility] NEUTROPHILS 68.6 42.2 - 75.2 % [facility] LYMPHOCYTES 23.1(L) 24.0 - 44.0 % [facility] MONOCYTES 7.6 2.0 - 10.0 % [facility] EOSINOPHILS 0.6 0.0 - 7.0 % [facility] BASOPHILS 0.1 0.0 - 1.0 % [facility] NEUTROPHIL ABSOLUTE 8.5(H) 2.0 - 8.0 K/uL [facility] LYMPHOCYTE ABSOLUTE 2.9 1.2 - 4.0 K/ul [facility] MONOCYTE ABSOLUTE 0.9(H) 0.1 - 0.6 K/ul [facility] EOSINOPHIL ABSOLUTE 0.1 0.0 - 0.7 K/ul [facility] BASOPHILS ABSOLUTE 0.0 0.0 - 0.2 K/ul INTER[facility] SYSTEM 02/16/2006 12:4 8 AM CDT Aby Bar MD HEMATOLOGY ORDERABLES Final Result INTERFACE SYSTEM Refer to clinic/hospital department documented in this encounter Visit Diagnoses Diagnosis First-degree perineal laceration, with delivery- Primary documented in this encounter Care Teams Hospitality Intern Relationship Specialty Start Date End Date Non-Staff, Physician NO ADDRESS ON FILE PCP - General 12/30/14 documented as of this encounter
--- OUTSIDE RECORDS SUMMARY | 2025-03-26 08:42 | XMS_ITS | Encounter Summary ---
Author Organization [facility] Address [address] [place] [address] Care Team Providers Care Sustainable Design Coordinator Name Role Phone Non-Staff, Physician Primary Care Provider Unava ilable Encounter Details Date Type Department Care Team (Late st Contact Info) Description 04/25/2007 Outpatient Historical [facility] [address] [facility] [address] [place] [address] Aby Bar MD [address] [place] [address] [address] [place] [address] Supervision of Other Normal (Primary Dx) Social History Tobacco Use Types Packs/Day Years Used Date Smoking Tobacco: Never Assessed Comments Unknown Sex and Gender Information Value Date Recorded Sex Assigned at Not on file 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
--- OUTSIDE RECORDS SUMMARY | 2025-03-26 08:42 | XMS_ITS | Encounter Summary ---
Author Organization [facility] Address [address] [place] [address] Care Team Providers Care Recreation Professor Name Role Phone Non-Staff, Physician Primary Care Provider Unava ilable Encounter Details Date Type Department Care Team (Late st Contact Info) Description 09/21/2007 Outpatient Historical [facility] [address] [facility] [address] [place] [address] Aby Bar MD [address] [place] [address] [address] [place] [address] Social History Tobacco Use Types Packs/Day Years Used Date Smoking Tobacco: Never Assessed Comments Unknown Sex and Gender Information Value Date Recorded Sex Assigned at Not on file 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
--- OUTSIDE RECORDS SUMMARY | 2025-03-26 08:42 | XMS_ITS | Encounter Summary ---
Author Organization [facility] Address [address] [place] [address] Care Team Providers Care Historiography Professor Name Role Phone Non-Staff, Physician Primary Care Provider Unava ilable Encounter Details Date Type Department Care Team (Late st Contact Info) Description 02/08/2006 Outpatient Historical [facility] [address] [facility] [address] [place] [address] Aby Bar MD [facility] [address] [place] [address] Supervision of Normal First (Primary Dx) Social History Tobacco Use Types Packs/Day Years Used Date Smoking Tobacco: Never Assessed Comments Unknown Sex and Gender Information Value Date Recorded Sex Assigned at Not on file 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
--- OUTSIDE RECORDS SUMMARY | 2025-03-26 08:42 | XMS_ITS | Encounter Summary ---
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
--- OUTSIDE RECORDS SUMMARY | 2025-03-26 08:42 | XMS_ITS | Encounter Summary ---
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); 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 Social History Tobacco Use Types Packs/Day Years Used Date Smoking Tobacco: Never Assessed Comments Unknown Sex and Gender Information Value Date Recorded Sex Assigned at Not on file 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
--- OUTSIDE RECORDS SUMMARY | 2025-03-26 08:42 | XMS_ITS | Encounter Summary ---
Author Organization [facility] Address [address] [place] [address] Care Team Providers Care Alfalfa Dehydrator Operator Name Role Phone Non-Staff, Physician Primary Care Provider Unava ilable Encounter Details Date Type Department Care Team (Latest Contact Info) Description 02/01/2006 Outpatient Historical [facility] [place] [address] [facility] [address] [place] [address] Munira Carl, DO [address] 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
--- OUTSIDE RECORDS SUMMARY | 2025-03-26 08:42 | XMS_ITS | Encounter Summary ---
Author Organization [facility] Address [address] [place] [address] Care Team Providers Care Pharmaceutical Process Engineer Name Role Phone Non-Staff, Physician Primary Care Provider Unava ilable Encounter Details Date Type Department Care Team (Late st Contact Info) Description 02/17/2006 Outpatient Historical [facility] [address] [facility] [address] [place] [address] Aby Bar MD [address] [place] [address] [address] [place] [address] Normal Delivery (Primary Dx); Outcome of Delivery, Single Liveborn Social History Tobacco Use Types Packs/Day Years Used Date Smoking Tobacco: Never Assessed Comments Unknown Sex and Gender Information Value Date Recorded Sex Assigned at Not on file 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
--- OUTSIDE RECORDS SUMMARY | 2025-03-26 08:42 | XMS_ITS | Encounter Summary ---
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
[2025-03-26 08:44] VITALS: BP 120/79; PULSE 80; RESP 18; TEMP 37.1; O2SAT 98; BMI 27.4
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
[2025-03-26] MEDS: ondansetron hcl ODT 4 mg Tab PO (09:18)
[2025-03-26] MEDS: HYDROcodone-acetaminophen 5-325 mg Tablet 1 TAB PO (09:18)
[2025-03-26 09:54] VITALS: BP 134/79; PULSE 65; RESP 16; O2SAT 96
[2025-03-26 10:55] VITALS: BP 111/72; PULSE 68; O2SAT 99
--- NOTE | 2025-03-27 07:39 | DCPLANNER ---
Sonny Soliz MD Otolaryngology (Ear Nose & Throat) [facility]
== END 2025-03-26 11:00 | disposition home or self-care (01) ==
PROVIDERS: Emergency Provider Emergency Medicine
DX: S02.652A Fracture of angle of left mandible, initial encounter for closed fracture (principal); S01.01XA Laceration without foreign body of scalp, initial encounter; Y00.XXXA Assault by blunt object, initial encounter
CPT/HCPCS: 70450; 70486; 72125; 99284; J9999; Q0162

== ENCOUNTER 2025-05-14 10:29 | Outpatient (CLI) | payer MEDICAID, SELFPAY ==
--- NOTE | 2025-05-14 10:35 | XR_ITS ---
WS: [id number] Left hand, 3 views, 05/14/2025 Clinical Data: FX OF PHALANX OF L RING FINGER Comparison: None. Findings: No fractures or dislocations are seen. The soft tissues are unremarkable. The joint spaces are normal XR/XR hand LT min 3V* [id number] Impression: Negative left hand.
== END 2025-05-14 10:30 | disposition home or self-care (01) ==
LOC: RAD 10:31
PROVIDERS: PCP Family Medicine; Visit Provider Family Medicine
DX: S62.605D Fracture of unspecified phalanx of left ring finger, subsequent encounter for fracture with routine healing (principal); X58.XXXD Exposure to other specified factors, subsequent encounter
CPT/HCPCS: 73130

== ENCOUNTER 2025-05-22 11:35 | Outpatient (CLI) | payer BC, MEDICAID, SELFPAY ==
--- NOTE | 2025-05-22 11:41 | MM_ITS ---
WS: [id number] SCREENING DIGITAL BREAST TOMOSYNTHESIS MAMMOGRAM WITH CAD HISTORY: SCREENING COMPARISON: None available. Bilateral CC and MLO with tomosynthesis and synthetic mammography submitted. Computer aided detection analyzed. Breast composition: The breasts are heterogeneously dense, which may obscure small masses. Very subtle area of distortion in the central posterior LEFT breast. There is an additional area of asymmetry and increased density in the superior LEFT breast. Both of these areas need to be further evaluated with additional imaging. RIGHT breast is negative. No suspicious grouping of calcifications. MM/MM [facility] tomosynthesis [id number] IMPRESSION: BI-RADS: 0 - Incomplete: Need additional imaging evaluation FOLLOW UP: Need Additional Imaging LEFT breast: Spot compression views (CC and MLO). True ML. Ultrasound to follow if abnormality persists.
== END 2025-05-22 11:36 | disposition home or self-care (01) ==
LOC: RAD 11:37
PROVIDERS: PCP Family Medicine; Visit Provider Family Medicine
DX: Z12.31 Encounter for screening mammogram for malignant neoplasm of breast (principal); R92.333 Mammographic heterogeneous density, bilateral breasts; N64.89 Other specified disorders of breast; R92.8 Other abnormal and inconclusive findings on diagnostic imaging of breast
CPT/HCPCS: 77063; 77067

== ENCOUNTER 2025-06-03 10:27 | Outpatient (CLI) | payer BC, MEDICAID, SELFPAY ==
--- NOTE | 2025-06-03 10:33 | MM_ITS ---
WS: [id number] ADDITIONAL VIEWS LEFT MAMMOGRAM WITH DIGITAL BREAST TOMOSYNTHESIS. LEFT breast ultrasound, limited. HISTORY: ABNORMAL LEFT MAMMOGRAM COMPARISON: 05/22/2025 Spot compression views LEFT breast in CC, MLO projections and true ML submitted with digital breast tomosynthesis and SM. Breast composition: The breasts are heterogeneously dense, which may obscure small masses. The asymmetry nearly completely resolves in the posterior LEFT breast in the upper outer quadrant. This asymmetry is in a posterior depth. There are additional scattered areas of dense fibroglandular tissue. Ultrasound to follow. LEFT breast ultrasound, limited. Ovoid cyst LEFT breast at 11:00, 1 cm from the nipple measures 1.9 x 0.8 x 1.9 cm. Fibrocystic changes and fibroglandular densities are scattered in the upper outer quadrant. There is no suspicious mass or shadowing. MM/MM diag LT tomosynthesis [id number] IMPRESSION: BI-RADS: 2 - Benign FOLLOW UP: 1 Year Follow-up Very dense fibroglandular tissue in the upper outer quadrant LEFT breast. Retur n to annual screening mammography.
== END 2025-06-03 10:28 | disposition home or self-care (01) ==
LOC: RAD 10:28
PROVIDERS: PCP Family Medicine; Visit Provider Family Medicine
DX: R92.8 Other abnormal and inconclusive findings on diagnostic imaging of breast (principal); R92.322 Mammographic fibroglandular density, left breast; R92.332 Mammographic heterogeneous density, left breast; N64.89 Other specified disorders of breast; N63.20 Unspecified lump in the left breast, unspecified quadrant
CPT/HCPCS: 76642; 77061; 77063

== ENCOUNTER → 2025-06-09 08:37 | Outpatient (BNVA) | payer BC, MEDICAID, SELFPAY | PROVIDERS: PCP Family Medicine; Visit Provider Orthopaedic Surgery | DX: M79.642 Pain in left hand (principal); S63.635A Sprain of interphalangeal joint of left ring finger, initial encounter; S63.637A Sprain of interphalangeal joint of left little finger, initial encounter; X50.1XXA Overexertion from prolonged static or awkward postures, initial encounter | CPT/HCPCS: 73130 ==